=== PATIENT | female | born 1935 | race Caucasian/White ===

== ENCOUNTER → 2016-11-03 | Outpatient (CLI) | payer OTHER, MEDICARE ==
[~2016-11-03] VITALS: Ht 165.1 cm; Wt 72.0 kg
[~2016-11-03] MED LIST: ALIGN10.5 MG PO; ASPIRIN325; ASPIRIN81 MG PO; CRESTOR5 MG PO; FLECAINIDE ACE100 MG PO; LANOXIN 0.120.125 M1 PO; MULTAQ400 MG PO; NASACORT10.8 ML NS; NIASPAN 500 MG500 M1 PO; TYLENOL SINUS1 EAC5 PO; UNICOMPLEX M TA1 TA1 PO; VERAPAMIL HCL40 MG PO; VITAMIN D2000 UNIT PO
--- NOTE | ~2016-11-03 | HPC ---
[facility] [place] [address] PAIN MANAGEMENT CONSULTATION Name: MARII VAN Room #: REG [facility].#: [id number] Admission: 11/03/16 Attend Phys: Javed Murrell DO Discharge: Date of : 37 Report #: [id number] THIS REPORT FOR: //name// CC: ADONIS Kaplan DATE OF SERVICE: 11/03/2016 DATE OF SERVICE: 11/03/2016 CHIEF COMPLAINT: Back pain. HISTORY OF PRESENT ILLNESS: As you know, the patient is an 81-year-old female, who has been referred to our service for epidural injection under fluoroscopic guidance. The patient was seen by [facility] advised to trial epidural injections to determine if this would be able to improve pain. At this point, she is not deemed a surgical candidate. She indicates her pain has been present since September. She denies injury or trauma that may have led to symptoms. She has been referred to our clinic due to this continuous and constant pain. She states the pain is throbbing and sharp in sensation, places the current pain score 3/10, daily average up to 9/10. States her pain is exacerbated with activities, improves with rest, relaxation. She has been evaluated from a surgical standpoint. Further request of her primary care physician and subsequently referred to our clinic to trial injection therapy. PAST MEDICAL HISTORY: 1. Carotid artery stenosis. 2. Chronic left knee pain secondary to osteoarthritis. 3. Idiopathic scoliosis. 4. Chronic left hip pain. 5. Hypertension. 6. Osteoarthritis. 7. Coronary artery disease. 8. Hyperlipidemia. PAST SURGICAL HISTORY: 1. Hysterectomy. 2. Tonsillectomy and adenoidectomy. 3. Left total knee arthroplasty. 4. Left shoulder rotator cuff repair. 5. Right total knee arthroplasty. SOCIAL HISTORY: The patient is a reformed smoker. She quit in 2000. [facility] [address] [place] [address] PAIN MANAGEMENT CONSULTATION Name: CARLOTAMARII Javier Room #: REG [facility].#: [id number] Admission: 11/03/16 Attend Phys: Javed Murrell DO Discharge: Date of : 37 Report #: [id number] or illicit drug use. Admits to 9 alcoholic beverages per week. She is , retired, unaccompanied today. REVIEW OF SYSTEMS: Positive for decrease in appetite, weight gain, chronic sinus problems with rhinitis, nocturia, varicose veins, numbness and tingling sensations involving the left lower extremity. All other review of systems negative per 12-point review of systems other than those listed in history of present illness. Pain impact score 51/70 indicating severe interference of daily activities secondary to pain. ALLERGIES: CODEINE. CURRENT MEDICATIONS: Multivitamin 1 tab per day, Align 10.5 mg once a day, Nasacort 1 spray each nostril per day, Tylenol Sinus 1 tab per day, verapamil 40 mg per day, aspirin 325 mg per day, rosuvastatin 5 mg per day. IMAGING: No imaging available. PHYSICAL EXAMINATION: VITAL SIGNS: Blood pressure 142/61, pulse 80, respiratory rate 18, unlabored. The patient is 97% on room air, height 5 feet 5 inches tall, weight 158.8 pounds, BMI calculated 26.4. GENERAL: Well-developed, well-nourished, well-hydrated 81-year-old female appearing her stated age, placing current pain score at around 3-8/10 depending on activity. HEENT: Normocephalic, atraumatic. Pupils equal, round, reactive to light. Extraocular muscles are intact. Sclerae nonicteric without injection. NEUROLOGIC: Cranial nerves 2-12 grossly intact. Speech is fluent. The patient deemed a fair historian. LUNGS: Clear, no wheeze, rhonchi or rales. CARDIOVASCULAR: Regular. No appreciable gallop or rub. ABDOMEN: Soft, normoactive bowel sounds. EXTREMITIES: Show no clubbing, no cyanosis, no edema. MUSCULOSKELETAL: Lower extremity strength appears equal and symmetrical 5/5, intact to light touch from L1 through S2 dermatomes. Deep tendon reflexes equal and symmetrical at patella and Achilles. Ankle clonus negative. Babinski is negative. Gait is normal, stance is slightly forward flexed lumbar spine. There is noted a scoliotic curvature as well as kyphotic curvature of the thoracic spine. Seated straight leg raising negative. Supine straight leg raising is mildly positive left. Fabere's test negative. Modified Gaenslen's positive for axial back pain. ASSESSMENT: 1. Symptomatic lumbar radiculopathy. [address] [address] PAIN MANAGEMENT CONSULTATION Name: MARII VAN [id number] Admission: 11/03/16 Attend Phys: Javed Murrell DO Discharge: Date of : 37 Report #: [id number] 2. Lumbosacral spondylosis with radiculopathy. 3. Chronic intractable pain. PLAN: 1. The patient has been referred to our service by her neurosurgery team to trial an epidural injection under fluoroscopic guidance to determine if her symptoms would be improved with this type of treatment. The patient and I did discuss at length today. Options for treatment for lumbar radicular pain and facet arthropathy pain. We discussed physical therapy, stretching exercises, core strengthening for which the patient is currently involved. We discussed medication management with nonsteroidal anti-inflammatory, low dose neuropathic pain medication. We discussed the requested epidural injection under fluoroscopic guidance to address lumbar radicular symptoms. We discussed intra-articular facet injections, medial branch nerve blocks, radiofrequency lesioning as possible treatment options for lumbar facet arthropathy. We also discussed spinal cord stimulator therapy for a possible treatment and surgical options. After reviewing risks and benefits of all proposed treatment options, the patient chose to undergo the epidural injection under fluoroscopic guidance. The patient was advised risks and benefits of a lumbar epidural injection. These risks include but are not necessarily limited to bleeding, bruising, infection, worsening pain, no relief of pain, also risk of temporary or permanent muscle weakness, temporary or permanent nerve damage, possible paralysis, or . The patient states understood and wished to proceed. 2. No medication changes were made at today's visit. The patient will continue current medical therapy as previously prescribed. 3. The patient will return to our clinic in approximately 3 weeks. At that time, review efficacy of today's epidural injection and determine if a repeat injection would be warranted. 4. We wish to thank Dr. Adonis Pickett and nurse practitioner, Darlene Zhang for the opportunity to see this patient in consultation. We will keep you apprised of her response to treatment for the requested epidural injections. Again, we wish to thank you for the opportunity to participate in her care. PROCEDURE NOTE DESCRIPTION OF PROCEDURE: Lumbar epidural steroid injection under fluoroscopic guidance. This is the first procedure of the first series that the patient is undergoing. After obtaining written consent, the patient was taken back to the fluoroscopy suite, placed in a prone position with pillow under the abdomen to decrease lumbar lordosis. The skin overlying the lumbosacral area was then prepped and draped in aseptic fashion. The lumbar vertebral interspace was then identified by AP fluoroscopy. The skin and subcutaneous tissue overlying the target site [address] [address] PAIN MANAGEMENT CONSULTATION Name: VANMARII Javier Room #: [facility].#: [id number] Admission: 11/03/16 Attend Phys: Javed Murrell DO Discharge: Date of : 37 Report #: [id number] of injection was anesthetized with 3 mL 1% lidocaine. A 20-gauge 3-1/2 inches Tuohy needle was then advanced under fluoroscopic guidance towards the epidural space using a left paramedian approach. The epidural space was identified using loss of resistance to air technique. After negative aspiration for heme or cerebrospinal fluid, a total of 1 mL of Omnipaque was injected. A lumbar epidurogram was confirmed using both AP and lateral fluoroscopy. After negative aspiration for heme or cerebrospinal fluid, 5 mL of solution containing 2 mL 40 mg per mL, 80 mg total triamcinolone, 3 mL of lidocaine 1% was injected in increments. Contrast spread was noted posterior epidural space. The needle was then retracted approximately half way and needle tract flushed with 1 mL of 1% lidocaine. Needle was then removed. There were no apparent sensory or motor deficits in the lower extremity following the procedure. A sterile bandage was placed over the injection site. The heart rate, pulse, oximetry and blood pressure were continuously monitored after the procedure. There were no apparent complications. The patient tolerated the procedure well and was carefully escorted to the recovery room in stable condition. There were no apparent complications. After meeting discharge criteria, the patient was then discharged home. By: [id number] Javed Murrell DO /taty
[2016-11-03 13:06] VITALS: BP 142/61
== END | disposition home or self-care (01) ==
LOC: PAIN 06:54
DX: M47.27 Other spondylosis with radiculopathy, lumbosacral region (principal); G89.29 Other chronic pain; M17.12 Unilateral primary osteoarthritis, left knee; M25.552 Pain in left hip; I10 Essential (primary) hypertension; M19.90 Unspecified osteoarthritis, unspecified site; I25.10 Atherosclerotic heart disease of native coronary artery without angina pectoris; Z90.710 Acquired absence of both cervix and uterus; Z98.890 Other specified postprocedural states; Z87.891 Personal history of nicotine dependence; Z88.6 Allergy status to analgesic agent; Z79.82 Long term (current) use of aspirin; Z79.899 Other long term (current) drug therapy